=== PATIENT | male | born 1965 | race Caucasian/White ===

== ENCOUNTER 2022-12-07 01:39 | Observation (INO) | payer OTHER ==
[2022-12-07] VITALS (13 sets, daily range): BP systolic 119–158; BP diastolic 72–92; PULSE 16–91; TEMP 97.4–98.9
[~2022-12-07] VITALS: Wt 86.1 kg
[2022-12-07 02:04] LABS: BASO # 0.1 K/mm3 (0.0-0.2); BASO % 0.6 % (0.0-2.0); EOS # 0.2 K/mm3 (0.0-0.7); EOS % 1.3 % (0.0-4.0); GRAN # 10.6 K/mm3 (1.4-6.5); HEMOGLOBIN 17.2 g/dl (13.5-18.0); LYMPH # 1.7 K/mm3 (1.2-3.4); LYMPH % 12.5 % (20.0-51.0); MEAN CELL VOLUME 84 fl (80.0-100.0); MEAN CORPUSCULAR HEMOGLOBIN 28 pg (27-31); MEAN CORPUSCULAR HGB CONC 33 g/dl (33.0-37.0); MEAN PLATELET VOLUME 8.9 fl (7.4-10.4); MONO # 0.9 K/mm3 (0.1-0.6); MONO % 6.8 % (1.7-9.3); PLATELET COUNT 397 K/mm3 (130-400); RED BLOOD COUNT 6.25 M/mm3 (4.20-5.60); REDCELL DISTRIBUTION WIDTH-CV 12.4 % (11.5-14.5)
[2022-12-07 02:11] LABS: HEMATOCRIT 52.5 % (42.0-52.0)
[2022-12-07 02:22] LABS: ALBUMIN 4.2 gm/dL (3.5-5.0); BILIRUBIN,TOTAL 0.4 mg/dL (0.2-1.2); CALCIUM 9.8 mg/dL (8.4-10.2); POTASSIUM 3.8 mmol/L (3.5-4.5); TOTAL PROTEIN 7.7 gm/dL (6.2-8.1)
[2022-12-07 02:27] LABS: CREATININE, serum 1.66 mg/dL (0.72-1.25)
--- NOTE | 2022-12-07 05:06 | NUR ---
PT ADMITTED TO ROOM 330. A&0. MOANING AND YELLING OUT IN PAIN. GAVE DILAUDID .5MG IV. NOTIFIED DR CASTILLO RE: UNCONTROLLED PAIN, URINARY RETENTION. SEE NEW ORDERS FOR TORADOL AND STRAT CATH. PLACED 16FR PFEIFFER WITH ONLY 60CC CLEAR YELLOW RETURN. HAS NOT VOIDED SINCE 209912/06/22. NOTIFIED DR CASTILLO AGAIN ABOUT POOR UO. PLACE PFEIFFER. START TRAVELING FREIGHT AGENT DILAUDID LEVEL 2.
--- NOTE | 2022-12-07 08:18 | NUR ---
Patient resting in bed speaking with visitor. No complaints of pain, states that AVIONICS SYSTEMS ENGINEER has been effective. Repeatedly had to ajust position of left arm d/t occlusion alarms. IV Site evaluated, no concerns. No other acute concerns at this time.
--- NOTE | 2022-12-07 11:16 | NUR ---
Patient sitting up in bed resting and waiting for surgery. No acute changes. Report given to primary nurse, end of student rotation.
--- NOTE | 2022-12-07 12:29 | NUR ---
PT TO SURGERY @1150 WITH NATALIE-OP STAFF.
--- NOTE | 2022-12-07 12:56 | NUR ---
Software Business Analyst met with patient to discuss discharge planning. Patient recognized SW from his admission last week. Patient lives in [place] with his , Dennise (ph#[phone]) and goes to [facility] in [place] for primary care. Patient stated there have been no changes since his last admission. Patient does not have DPOA-HC and does not wish to complete one at this time. Patient stated his is his legal next of kin and he trusts her to make medical decisions for him if needed. Discharge Plan: Home
--- NOTE | 2022-12-07 13:49 | NUR ---
PT TO ROOM 330 PER BED WITH REPORT FROM MARIUSZ TARANGO. VSS, PT HAD PASSED STONE PRIOR TO CYSTO. PT IS A/O X4, AT BEDSIDE. PROVIDED H2O PER PT REQUEST. MAY DISCHARGE WHEN CRITERIA MET.
--- NOTE | 2022-12-07 14:41 | NUR ---
DISCHARGE CRITERIA MET. PT LEFT UNIT AMBULATORY.
[2022-12-10] MEDS ORDERED: FLOMAX 0.40.4 MG/CAP PO (08:48)
[2022-12-10] MEDS ORDERED: NORCO 325 MG-51 TAB PO (08:49)
== END 2022-12-07 14:42 | disposition home or self-care (01) ==
LOC: COL.ER 01:39 → SURG 02:32 → COL.ER 02:32 → SURG 02:32
PROVIDERS: Emergency Medicine; ADMIT Urology
DX: N13.2 Hydronephrosis with renal and ureteral calculous obstruction (principal); I10 Essential (primary) hypertension; F17.220 Nicotine dependence, chewing tobacco, uncomplicated
CPT/HCPCS: C1769; G0378; J0690; J1170; J1885; J2310; J2405; J2704; J3010; J7030